=== PATIENT | female | born 1980 | race Asian ===

== ENCOUNTER → 2018-11-26 | Outpatient (CLI) | payer OTHER ==
--- NOTE | 2018-11-26 16:22 | PCVCIMAG ---
APPROVED REPORT Study performed: 11/26/2018 15:19:34 Exam: Stress Echocardiogram Indication: Chest pain , Dyspnea Patient Location: Echo lab Stress Nurse: Tabitha Chandler RN Room #: 2 Status: routine Ht: 5 ft 3 in HR: 87 bpm BP: 106/60 mmHg Rhythm: NSR Medical History Medical History: Diabetes Cardiac Risk Factors: FHX of CAD Previous Cardiac Procedures: none Pretest Chest Pain Characteristics: No chest pain Exercise History: Physically active Procedure The patient underwent an Exercise Stress Test using the Theodore Protocol. Blood pressure, heart rate, and EKG were monitored. An Echocardiogram was performed by brewing technician in four stages in quad fashion. At peak stress, four selected images were obtained and placed side by side with resting images for comparison. Stress Test Details Stress Test: Exercise stress testing was performed using a Theodore protocol. HR Resting HR: 78 bpmMax Heart Rate (APMHR): 181 bpm Max HR Achieved: 171 bpmTarget HR (85% APMHR): 153 bpm % of APMHR: 94 Recovery HR: 104 bpm HR response to stress: Normal HR response to stress BP Resting BP: 106/60 mmHg Max BP: 136/60 mmHg Recovery BP: 102/54 mmHg BP response to stress: Normal blood pressure response to stress. ECG Resting ECG: Sinus Rhythm Stress ECG: Sinus Rhythm, NSSTT changes ST Change: Normal Maximum ST Deviation: 0 mm Arrhythmia: None Recovery ECG: Sinus Rhythm Recovery ST Change: Non-ischemic Recovery ST Deviation: 0 mm Recovery Arrhythmia: None Clinical Reason for Termination: Maximal effort Stress Symptoms: fatigue Exercise duration: 9 min sec Highest Stage Achieved: Stage 4: 4.2 mph at 16% grade. Exercise capacity: 12 METs Overall Exercise Capacity for Age: Normal Scale: Active Angina Score: None No complications. Stress ECG Conclusion The patient exercised according to the THEODORE protocol for 9:36 mins; achieving a work level of 12.0 METS. The resting heart rate of 78 bpm keshawn to a maximum heart rate of 171 bpm. This value represent 94% of the maximal, age-predicted heart rate. The resting blood pressure of 106/60 mmHg, keshawn to a maximum blood pressure of 136/60 mmHg. The exercise test was stopped due to fatigue and dyspnea. Cannon Treadmill Score is 9.0 which is Low risk. Pre-Stress Echo The resting Echocardiogram showed normal left ventricular contractility with an estimated Ejection Fraction of about 55-60%. Normal wall motion in all segments on baseline images. Post-Stress Echo The stress Echocardiogram showed normal left ventricular contractility with an estimated Ejection Fraction of about 65-70%. Normal augmentation of wall motion in all segments on post stress images. Clinical No clinical or ECG evidence for ischemia. Conclusion Clinical Response: Non-ischemic Exercise Capacity: Average Stress ECG Response: Indeterminant Stress Echo Images: Non-ischemic No clinical, EKG or echocardiographic evidence for ischemia. No echocardiographic evidence for exercise induced ischemia. Normal stress echocardiogram with maximal exercise stress. <Conclusion> No clinical, EKG or echocardiographic evidence for ischemia. No echocardiographic evidence for exercise induced ischemia. Normal stress echocardiogram with maximal exercise stress.
== END | disposition home or self-care (01) ==
LOC: PCVCIMAG 15:13
PROVIDERS: ATTEND Internal Medicine Cardiovascular Disease
DX: R07.89 Other chest pain (principal); R06.02 Shortness of breath; E78.5 Hyperlipidemia, unspecified; E11.9 Type 2 diabetes mellitus without complications
CPT/HCPCS: 93325; 93351